=== PATIENT | male | born 1965 | race Caucasian/White ===

== ENCOUNTER 2023-10-31 08:25 | Emergency (ER) | payer MEDICAID, OTHER ==
[2023-10-31 08:44] VITALS: BP 134/108; PULSE 82
[2023-10-31] MEDS: Ketorolac 60 MG/2 ML SDV IM SCH (09:42)
[2023-11-03] MEDS: Ketorolac 60 MG/2 ML SDV ONE (08:42)
== END 2023-10-31 09:53 | disposition home or self-care (01) ==
LOC: LB.ED 08:25
DX: M54.6 Pain in thoracic spine (principal); W00.0XXA Fall on same level due to ice and snow, initial encounter
CPT/HCPCS: 71101; 72020; 96372; 99284; J1885